=== PATIENT | female | born 1980 | race African-American/Black ===

== ENCOUNTER 2018-01-29 21:17 | Observation (INO) | payer BC, MEDICARE, SELFPAY ==
[2018-01-29 22:35] LABS: INR-International Normal Ratio 1.3; PTT 36.5 SEC (22.9-36.1); Prothrombin Time 16.5 SEC (12.0-14.7)
[2018-01-29 22:46] LABS: ALT (SGPT) 13 U/L (8-55); AST (SGOT) 28 U/L (5-34); Albumin 3.2 g/dL (3.5-5.0); Alkaline Phosphatase 205 U/L (40-150); Anion Gap 12 mmol/L (10-20); BUN (Urea Nitrogen) 7 mg/dL (7.0-18.7); Bilirubin, Total 1.2 mg/dL (0.2-1.2); Calc. Creatinine Clearance 0 mL/min (70-130); Calcium 8.5 mg/dL (7.8-10.44); Carbon Dioxide 19 mmol/L (22-29); Chloride 108 mmol/L (98-107); Estimated GFR-MDRD Greater than 90; Globulin 3.8 g/dL (2.4-3.5); Glucose 92 mg/dL (70-105); Potassium 3.4 mmol/L (3.5-5.1); Sodium 136 mmol/L (136-145)
[2018-01-29 22:48] LABS: Hemoglobin 9.8 g/dL (12.0-16.0); Mean Corpuscular HGB CONC 32.6 g/dL (32.0-36.0); Mean Corpuscular Hemoglobin 26.1 pg (27.0-31.0); Mean Corpuscular Volume 80.1 fl (81.0-99.0); Mean Platelet Volume 8.4 fL (7.4-10.4); Platelet Count 165 thou/uL (130-400); Red Blood Cell (RBC) Count 3.76 mill/uL (4.20-5.40); White Blood Cell (WBC) Count 11.4 thou/uL (4.8-10.8)
[2018-01-29 22:51] LABS: CKMB 4.9 ng/mL (0-6.6)
[2018-01-29 22:57] LABS: Troponin I 0.389 ng/mL (< 0.028)
[2018-01-29] MEDS ORDERED: Promethazine HCl 25 MG/ML VIAL ONE (23:00)
[2018-01-29 23:04] LABS: Lymphocytes 30 % (21-51); MDiff Complete? YES; Monocytes 5 % (0-10); Neutrophil 65 % (42-75); RBC Morphology Normal
[2018-01-30] MEDS ORDERED: Acetaminophen 325 MG TAB PO PRN (00:02)
[2018-01-30] MEDS ORDERED: Ondansetron HCl/PF 4 MG/2 ML Vial IVP PRN ×2 (00:02→10:16)
[2018-01-30] MEDS ORDERED: Ondansetron ODT 4 MG TAB SL PRN (00:02)
[2018-01-30 00:10] VITALS: BMI 25.5
[2018-01-30 02:04] LABS: Troponin I 0.412 ng/mL (< 0.028)
[2018-01-30] MEDS ORDERED: Aspirin 325 mg Enteric Coated Tablet PO SCH (02:30)
[2018-01-30 05:04] LABS: Troponin I 0.286 ng/mL (< 0.028)
[2018-01-30] MEDS ORDERED: Ondansetron ODT 4 MG TAB PO PRN (10:16)
[2018-01-30] MEDS ORDERED: hydrALAZINE 20 MG/ML VIAL SLOW IVP PRN (10:16)
[2018-01-30] MEDS ORDERED: cloNIDine 0.1 MG TAB PO PRN (10:16)
[2018-01-30 10:54] LABS: Cardiac Risk 2.9 (Less than 4.5); Magnesium 1.5 mg/dL (1.6-2.6)
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
[2018-01-30] MEDS: Acetaminophen 500 MG TAB PO PRN (13:41)
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
[2018-01-30] MEDS: Carvedilol 6.25 MG TAB PO SCH (18:34)
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
[2018-01-30] MEDS: Famotidine 20 MG TAB PO SCH (20:47)
[2018-01-30] MEDS ORDERED: Atorvastatin Calcium 40 MG TAB PO SCH (21:00)
[2018-01-31 05:29] LABS: Eosinophils 3 % (0-10); Hemoglobin 10.2 g/dL (12.0-16.0); Lymphocytes 69 % (21-51); MDiff Complete? YES; Mean Corpuscular HGB CONC 31.5 g/dL (32.0-36.0); Mean Corpuscular Hemoglobin 25.8 pg (27.0-31.0); Mean Corpuscular Volume 81.8 fl (81.0-99.0); Mean Platelet Volume 8.9 fL (7.4-10.4); Monocytes 7 % (0-10); Neutrophil 21 % (42-75); Platelet Count 173 thou/uL (130-400); RBC Distribution Width 14.3 % (11.5-14.5); Red Blood Cell (RBC) Count 3.95 mill/uL (4.20-5.40); White Blood Cell (WBC) Count 6.6 thou/uL (4.8-10.8)
[2018-01-31] MEDS: Famotidine 20 MG TAB PO SCH (08:31)
[2018-01-31] MEDS: Carvedilol 6.25 MG TAB PO SCH (08:32)
[2018-01-31] MEDS: Acetaminophen 500 MG TAB PO PRN (08:35)
[2018-01-31] MEDS ORDERED: Sacubitril 49 MG/Valsartan 51 MG TABLET PO SCH (09:00)
[2018-01-31] MEDS ORDERED: Aspirin 325 MG TAB PO SCH (09:00)
[2018-01-31] MEDS ORDERED: Clopidogrel Bisulfate 75 MG TAB PO SCH (09:00)
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
[2018-01-31 10:36] LABS: Free T4 (Free Thyroxine) 3.12 ng/dL (0.70-1.48)
[2018-01-31 11:59] VITALS: BP 132/72; TEMP 97.3
[2018-01-31] MEDS ORDERED: Losartan 25 MG TAB PO SCH (12:00)
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
[2018-01-31] MEDS ORDERED: Atorvastatin Calcium 20 MG TAB PO SCH (21:00)
[2018-02-01] MEDS ORDERED: Spironolactone 25 MG TAB PO SCH (08:00)
== END 2018-01-31 13:33 | disposition home or self-care (01) ==
LOC: ERS 21:17 → 2SW 22:40
PROVIDERS: ADMIT Internal Medicine; ATTEND Internal Medicine
DX: R07.9 Chest pain, unspecified (principal); I25.10 Atherosclerotic heart disease of native coronary artery without angina pectoris; I25.5 Ischemic cardiomyopathy; I24.8 Other forms of acute ischemic heart disease; I48.91 Unspecified atrial fibrillation; E05.00 Thyrotoxicosis with diffuse goiter without thyrotoxic crisis or storm; D50.9 Iron deficiency anemia, unspecified; F17.210 Nicotine dependence, cigarettes, uncomplicated; E87.6 Hypokalemia; E83.42 Hypomagnesemia; I11.0 Hypertensive heart disease with heart failure; I50.9 Heart failure, unspecified; E78.5 Hyperlipidemia, unspecified; Z95.5 Presence of coronary angioplasty implant and graft; Z79.82 Long term (current) use of aspirin; Z79.899 Other long term (current) drug therapy; Z91.14 Patient's other noncompliance with medication regimen; Z95.810 Presence of automatic (implantable) cardiac defibrillator; Z98.890 Other specified postprocedural states
CPT/HCPCS: 36415; 80061; 82274; 83540; 83550; 83735; 83880; 84439; 84443; 84481; 84484; 85007; 85027; 85610; 85730; 93005; 93306; 94760; 96365; 99406; A4216; G0378; J2550

== ENCOUNTER 2018-10-09 12:50 | Inpatient (IN) | payer BC, MEDICARE, SELFPAY ==
[2018-10-09 13:58] LABS: Hemoglobin 9.2 g/dL (12.0-16.0); Mean Corpuscular HGB CONC 31.3 g/dL (32.0-36.0); Mean Corpuscular Hemoglobin 25.6 pg (27.0-31.0); Mean Corpuscular Volume 81.9 fL (78.0-98.0); Mean Platelet Volume 10.3 fL (7.4-10.4); Platelet Count 152 thou/uL (130-400); RBC Distribution Width 16.7 % (11.5-14.5); Red Blood Cell (RBC) Count 3.58 mill/uL (4.20-5.40)
[2018-10-09 14:02] LABS: ALT (SGPT) Less than 7 U/L (8-55); AST (SGOT) 19 U/L (5-34); Albumin 2.7 g/dL (3.5-5.0); Alkaline Phosphatase 212 U/L (40-150); Anion Gap 10 mmol/L (10-20); BUN (Urea Nitrogen) 8 mg/dL (7.0-18.7); Calc. Creatinine Clearance 0 mL/min (70-130); Calcium 8.4 mg/dL (7.8-10.44); Carbon Dioxide 24 mmol/L (22-29); Chloride 106 mmol/L (98-107); Estimated GFR-MDRD Greater than 90; Globulin 4.4 g/dL (2.4-3.5); Glucose 118 mg/dL (70-105); Potassium 3.1 mmol/L (3.5-5.1); Protein, Total 7.1 g/dL (6.0-8.3); Sodium 137 mmol/L (136-145)
[2018-10-09 14:04] LABS: INR-International Normal Ratio 1.6; PTT 38.8 SEC (22.9-36.1); Prothrombin Time 19.2 SEC (12.0-14.7)
[2018-10-09 14:22] LABS: Acanthocytes SLIGHT = 1-5 cells (100X) (None Seen); Anisocytosis SLIGHT = 6-15 cells (100X) (0-5/hpf); Elliptocytes SLIGHT = 2-5 cells (100X) (0-1/hpf); Hypochromia SLIGHT = 6-15 cells (100X) (0-5/hpf); Lymphocytes 65 % (21-51); MDiff Complete? YES; Monocytes 3 % (0-10); Neutrophil 32 % (42-75); Platelet Morphology Comment Appears Adequate; Poikilocytosis SLIGHT = 6-15 cells (100X) (0-5/hpf); Target Cells SLIGHT = 2-5 cells (100X) (0-1/hpf)
--- NOTE | 2018-10-09 14:39 | RAD ---
PORTABLE AP CHEST XRAY: DATE: 10/09/2018. HISTORY: Fluid buildup in abdomen and bilateral legs. History of cardiomyopathy, CHF. COMPARISON: 04/17/2018. FINDINGS: Dual-lead left subclavian AICD device remains in place. Cardiac silhouette is magnified by projectio n but does appear mildly enlarged. Pulmonary vasculature is within normal limits. The electronic de vice overlying the left lung base obscures this region, but the lungs are otherwise clear. There has been no interval change from prior exam. IMPRESSION: 1. No acute cardiopulmonary process. 2. Cardiomegaly. POS: [facility]
[2018-10-09 16:15] LABS: Free T4 (Free Thyroxine) 3.75 ng/dL (0.70-1.48)
[2018-10-09] MEDS ORDERED: Magnesium 2 GM/50 ML BAG (IN WATER) ONE (16:40)
[2018-10-09] MEDS ORDERED: Potassium Chloride 20 MEQ in Premix Bag 1 BAG IVPB SCH (17:00)
[2018-10-09] MEDS ORDERED: Acetaminophen 650 MG Suppository PR PRN (18:22)
[2018-10-09] MEDS ORDERED: Senokot S 8.6-50 MG TAB PO PRN (18:22)
[2018-10-09] MEDS ORDERED: Acetaminophen 325 MG TAB PO PRN (18:22)
[2018-10-09] MEDS ORDERED: Ondansetron PF 4 MG/2 ML Vial IVP PRN (18:22)
[2018-10-09] MEDS ORDERED: Ondansetron ODT 4 MG TAB PO PRN (18:22)
[2018-10-09] MEDS ORDERED: Potassium Chloride 20 MEQ TAB PO SCH (18:30)
[2018-10-09 18:31] LABS: Troponin I Less than 0.010 ng/mL (< 0.028)
[2018-10-09 20:19] LABS: Bilirubin Small (Negative); Blood, Urine Trace (Negative); Clarity CLEAR (Clear); Glucose, Urine (Dipstick) Negative (Negative); Leukocyte Trace (Negative); Nitrite Negative (Negative); Protein, Urine (Dipstick) 30 mg/dL (Neg-Trace); pH, Urine 6.5 (5.0-9.0)
[2018-10-09 20:20] LABS: Bacteria/HPF Rare-Few HPF (None Seen); Hyaline Casts/LPF 0-3 HYALINE CAST LPF (0-3 Hyaline); Pathc Cast-AUWi Flag 0.14 (0-2.49); Squamous Epithelial 0-3 HPF (0-3); WBC/HPF 0-3 HPF (0-3)
[2018-10-09 20:23] LABS: Pregnancy Test - Urine (BHCG) Negative (Negative); Pregu Control Background? CLEAR/WHITE (CLR/WHITE); Pregu Control Bar Appear? YES (CONTROL BAR)
[2018-10-09 20:27] LABS: Troponin I Less than 0.010 ng/mL (< 0.028)
[2018-10-09] MEDS ORDERED: Famotidine 20 MG TAB ONE (21:30)
[2018-10-09] MEDS: Magnesium Oxide 400 MG TAB PO SCH (21:34)
[2018-10-09] MEDS: Atorvastatin Calcium 20 MG TAB PO SCH (21:34)
[2018-10-09] MEDS: Methimazole 10 MG TAB PO SCH (21:34)
[2018-10-09] MEDS: Famotidine 20 MG TAB PO SCH (21:55)
[2018-10-09] MEDS: Sacubitril 49 MG/Valsartan 51 MG TABLET PO SCH (22:24)
--- NOTE | 2018-10-10 01:07 | HP ---
PRIMARY CARE PHYSICIAN: Nae Sanderson PA-C CHIEF COMPLAINT: Dyspnea on exertion and increasing abdominal girth. HISTORY OF PRESENT ILLNESS: This is a 38-year-old female with a known history of congestive heart failure with ejection fraction less than 30%, who also has an AICD and has had a cardiac stent placed as well. She reports that over the last 2 to 3 weeks, she has had increased dyspnea on exertion, increased shortness of breath when she tries to bend over, and increasing abdominal girth. She came in today to be evaluated for this. She was noted to have findings of ascites on her abdominal exam along with low albumin and mildly elevated bilirubin and also to have a severely elevated brain natriuretic peptide, though with fairly clear lungs and not a lot of peripheral edema. The patient is also noted to have exophthalmos and TSH showed hyperthyroidism, she has a history of Graves disease, it was uncontrolled. She reports that she has not taken any methimazole for many months because she was unable to get back in to see her validation intern. PAST MEDICAL HISTORY: 1. Coronary artery disease, status post cardiac stent placement in 2008. 2. Cardiomyopathy likely with most recent ejection fraction of 20% to 25%, as well as diastolic dysfunction in January of 2018. 3. Hypertension. 4. Dyslipidemia. 5. Graves disease. PAST SURGICAL HISTORY: 1. Bilateral tubal ligation. 2. AICD placement in 2008 with battery exchange in 2014. 3. Cardiac stent placement in 2008. 4. section. 5. Right knee surgery. SOCIAL HISTORY: The patient smokes 1 to 2 cigarettes per day for the last 1 to 2 years. Before that, she was doing about 10 per day. No regular alcohol. No illicit drugs. She lives in [place], [place]. Has a 10-year-old daughter. FAMILY HISTORY: Multiple family members with hypertension. ALLERGIES: NO KNOWN DRUG ALLERGIES. CURRENT MEDICATIONS: 1. Coreg 12.5 mg twice a day. 2. Plavix 75 mg daily. 3. Simvastatin 10 mg daily. 4. Spironolactone 25 mg daily. 5. Aspirin 325 mg daily. 6. Entresto 49/51 mg two times a day. REVIEW OF SYSTEMS: CONSTITUTIONAL: No fevers, no chills, no weight changes. EYES: No double vision or blurred vision. She has had protuberant eyes, has not noticed any changes recently. ENT: No congestion, drainage, or sore throat. CARDIOVASCULAR: No chest pain. No palpitations or racing heart. PULMONARY: See HPI. No coughing or wheezing. GASTROINTESTINAL: She has had increasing abdominal girth, but no abdominal pain. No nausea, vomiting. No diarrhea or constipation. GENITOURINARY: No dysuria or hematuria. MUSCULOSKELETAL: No muscle aches or joint pain. SKIN: No rashes or lesions noted. NEUROLOGIC: No numbness, tingling, or focal weakness. PHYSICAL EXAMINATION: VITAL SIGNS: Blood pressure 143/84, pulse 73, respirations 18, temperature 98.3, O2 saturation 95% on room air. GENERAL: This is a well-developed, well-nourished female, in no acute distress. HEENT: Pupils equal, round, and reactive to light. She does have exophthalmos. Oropharynx is clear without lesions, erythema, or exudate. NECK: Supple. No lymphadenopathy. No thyroid nodules or enlargement. She does have significant JVD. HEART: Regular rate and rhythm. No murmurs, rubs, or gallops. LUNGS: Clear to auscultation bilaterally. No wheezes, crackles, or rhonchi. ABDOMEN: Protuberant, firm. She does have a positive fluid wave, not specifically tender to palpation. No organomegaly or masses. She does have normoactive bowel sounds. EXTREMITIES: She has trace edema in the lower extremities. No clubbing or cyanosis. SKIN: No rashes or lesions noted. NEUROLOGIC: She has intact strength in all extremities. Intact reflexes in all extremities and no facial droop. PSYCHIATRIC: Alert and oriented x3. Normal mood and affect. LABORATORY DATA: CBC notable for a hemoglobin of 9.2, hematocrit of 29.3; these are consistent with her previous labs. Platelet count is normal. White count normal. Coagulation profile does show a PT of 19.2, INR of 1.6, and a PTT of 38. Complete metabolic panel is notable for potassium of 3.1, for which she got replacement in the ER. Creatinine was 0.59, glucose of 118, and calcium of 8.4. Total bilirubin was 2.0. AST and ALT were not elevated. Alkaline phosphatase was 212. Albumin was 2.7, down from 3 in the middle of last year and normal in 2017. Her TSH was suppressed at 0.0025, free T4 was elevated at 3.75 and free T3 was greater than 20. Troponin was normal. Brain natriuretic peptide was elevated at 1635 which is higher than any of her previous time she was in. Magnesium was low at 1.3. CHEST X-RAY: I did review the chest x-ray done in the emergency room along with the radiologist's report, it does show cardiomegaly, but no evidence of pulmonary edema or congestion. ASSESSMENT: 1. Acute exacerbation of congestive heart failure. This is likely the source of her ascites as well and may have caused her liver failure. We will give patient Lasix 40 mg IV twice a day. We will also replete potassium as needed. We will continue her spironolactone also as well as other heart medications. 2. Graves disease, uncontrolled. Patient has been off methimazole and is completely uncontrolled now, although she does not have any tachycardia at this time. We will start her on methimazole 10 mg three times a day and we will give propranolol if needed should she develop any evidence of tachycardia or other evidence of thyroid storm. 3. Hypokalemia, replaced in the ER. We will continue to replace as needed. We will go ahead and start her on a 20 mg tablet daily as well given that we are going to be diuresing her. 4. New onset ascites with evidence of liver failure. She has a low albumin and elevated bilirubin, suspicious of cardiac cirrhosis. We would get an ultrasound of her liver and of her abdomen to fully assess the ascites and her liver structure and we will also consult Dr. Pappas, Gastroenterology. We will check viral hepatitis panels as well. 5. Gastrointestinal prophylaxis. Put patient on Pepcid twice a day. 6. Deep venous thrombosis prophylaxis. We will put patient on SCDs. We will hold off on the enoxaparin for now given her liver disease. CODE STATUS: I did discuss this with the patient. She is a full code. Should she be incapacitated, she states that her aunt would be her medical decision maker, her name is Daisy Rodriguez. Job ID: [id number]
[2018-10-10 04:24] LABS: Anion Gap 10 mmol/L (10-20); BUN (Urea Nitrogen) 9 mg/dL (7.0-18.7); Calc. Creatinine Clearance 0 mL/min (70-130); Calcium 8.4 mg/dL (7.8-10.44); Carbon Dioxide 24 mmol/L (22-29); Chloride 107 mmol/L (98-107); Estimated GFR-MDRD Greater than 90; Glucose 84 mg/dL (70-105); Potassium 3.5 mmol/L (3.5-5.1); Sodium 137 mmol/L (136-145)
[2018-10-10] MEDS ORDERED: Furosemide 40 MG/4 ML VIAL ONE ×2 (05:50→13:34)
[2018-10-10] MEDS: Furosemide 40 MG/4 ML VIAL SLOW IVP SCH ×2 (06:01→13:47)
[2018-10-10 06:42] LABS: Hemoglobin 9.1 g/dL (12.0-16.0); MDiff Complete? YES; Mean Corpuscular HGB CONC 31.4 g/dL (32.0-36.0); Mean Corpuscular Hemoglobin 25.5 pg (27.0-31.0); Mean Corpuscular Volume 81.3 fL (78.0-98.0); Mean Platelet Volume 10.4 fL (7.4-10.4); Platelet Count 153 thou/uL (130-400); RBC Distribution Width 16.5 % (11.5-14.5); Red Blood Cell (RBC) Count 3.58 mill/uL (4.20-5.40); White Blood Cell (WBC) Count 5.9 thou/uL (4.8-10.8)
[2018-10-10 06:55] LABS: Lymphocytes 48 % (21-51)
[2018-10-10 07:01] LABS: Neutrophil 44 % (42-75)
[2018-10-10 07:02] LABS: Monocytes 8 % (0-10)
--- NOTE | 2018-10-10 08:13 | PDOC.PN ---
- Subjective Encounter Start Date: 10/10/18 Encounter Start Time: 11:30 Subjective: Voiding well with Lasix. No SOB. - Objective Resuscitation Status - Order Detail: 10/09/18 18:15 Resuscitation Status Routine Resuscitation Status: FULL: Full Resuscitation Discussed with: Guillaume WALTER Reviewed: Yes Result Diagrams: 10/10/18 03:34 10/10/18 03:34 Phys Exam - Physical Examination Constitutional: NAD HEENT: moist MMs Respiratory: no wheezing, no rales, no rhonchi Cardiovascular: RRR, no significant murmur Gastrointestinal: positive bowel sounds distended, tense, non-tender Musculoskeletal: no edema Neurological: non-focal, moves all 4 limbs Psychiatric: normal affect, A&O x 3 Dx/Plan (1) Acute on chronic systolic CHF (congestive heart failure) Code(s): I50.23 - ACUTE ON CHRONIC SYSTOLIC (CONGESTIVE) HEART FAILURE Status : Acute Comment: Diuresing (2) Liver failure Status: Acute Comment: Likely due to CHF congestion (3) Ascites Code(s): R18.8 - OTHER ASCITES Status: Acute (4) Graves' disease Code(s): E05.00 - 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 - Discharge Day Encounter end time: 11:45
--- NOTE | 2018-10-10 08:29 | ULT ---
COMPLETE ABDOMINAL ULTRASOUND: Comparison: None. History: Liver failure with new onset ascites. Technique: Multiplanar grayscale and color doppler images were obtained in a complete abdominal ultra sound. FINDINGS: The liver is slightly echogenic without focal lesions or intrahepatic duct dilatation. There is a mod erate amount of ascites. The gallbladder is contracted with the current gallbladder wall thickening l ikely secondary to its contracted state. No shadowing stones are seen in the gallbladder. The common bile duct is normal measuring 2 mm. The aorta and inferior vena cava are normal in caliber. The visualized portions of the pancreas are u nremarkable. The spleen is normal in echogenicity without focal lesions and measures 8.2 cm in length . Both kidneys are normal in echogenicity without hydronephrosis or calculi and measures 8.7 and 8.9 cm in length on the right and left, respectively. IMPRESSION: Moderate ascites. POS: [facility]
[2018-10-10] MEDS ORDERED: Enoxaparin Sodium 40 MG/0.4 ML SYRINGE SC SCH (09:00)
[2018-10-10 09:01] LABS: HBCM Index 0.08 S/CO (0-0.79); HBSAg Index 0.22 S/CO (0-0.99); Hep A IgM AB Non-Reactive (NonReactive); Hep A IgM S/CO 0.13 S/CO (0-0.79); Hep B Surf Ag Non-Reactive S/CO (NonReactive); Hep C IgG Ab Non-Reactive (NonReactive); Hep C Index 0.06 S/CO (0-0.79); Hepatitis B Core IgM Abs Non-Reactive (NonReactive)
[2018-10-10] MEDS: Sacubitril 49 MG/Valsartan 51 MG TABLET PO SCH ×2 (10:26→20:57)
[2018-10-10] MEDS: Carvedilol 6.25 MG TAB PO SCH ×2 (12:37→17:38)
[2018-10-10] MEDS: Methimazole 10 MG TAB PO SCH ×3 (12:39→20:57)
[2018-10-10] MEDS: Magnesium Oxide 400 MG TAB PO SCH ×2 (12:41→20:56)
[2018-10-10] MEDS ORDERED: Famotidine 20 MG TAB ONE (13:34)
[2018-10-10] MEDS ORDERED: Potassium Chloride 20 MEQ TAB ONE (13:34)
[2018-10-10] MEDS ORDERED: Clopidogrel Bisulfate 75 MG TAB ONE (13:34)
[2018-10-10] MEDS: Clopidogrel Bisulfate 75 MG TAB PO SCH (13:43)
[2018-10-10] MEDS: Potassium Chloride 20 MEQ TAB PO SCH (13:44)
[2018-10-10] MEDS: Famotidine 20 MG TAB PO SCH ×2 (13:44→20:56)
[2018-10-10] MEDS: Spironolactone 25 MG TAB PO SCH (14:24)
[2018-10-10 15:02] VITALS: BMI 26.8
--- NOTE | 2018-10-10 19:55 | CON ---
DATE OF CONSULTATION: 10/10/2018 REASON FOR CONSULTATION: Heart failure. PRIMARY NEONATAL PEDIATRIC NURSE: Dr. Torres Brown. HISTORY OF PRESENT ILLNESS: Ms. Tirado is a pleasant 38-year-old female, who comes to the hospital for increased shortness of breath. She has been having worsening shortness of breath for the last 3 weeks as well as some increase in abdominal girth. She came in as she was unable to tolerate her abdominal pain from the swelling and her breathing was getting much worse, she cannot lie flat. She has not been on thyroid suppressive medications for some time now, but she has been taking her heart failure medications. She was evaluated in the ER and admitted for heart failure exacerbation. She has known nonischemic cardiomyopathy with a cardiomyopathy with an EF of about 20% to 25%. She was also found to have completely suppressed TSH and a very elevated free T3 and free T4 consistent with Graves disease that was untreated. The patient received 1 dose of IV Lasix. She has diuresed some and is already feeling much better. PAST MEDICAL HISTORY: 1. Nonischemic cardiomyopathy . 2. 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 She has never had a stent placed. She actually only had thrombectomy of the thrombus that embolized on the LAD. 3. Hypertension. 4. Hyperlipidemia. 5. Graves disease. PAST SURGICAL HISTORY: 1. Bilateral tubal ligation. 2. AICD placement in 2008, exchanged in 2014. 3. Manual thrombectomy of the LAD in 2008 in the setting of an anterior LA related to an embolic LA from an LV thrombus. 4. . 5. Right knee surgery. SOCIAL HISTORY: Continues to smoke about 1 or 2 cigarettes a day. No alcohol. No drugs. FAMILY HISTORY: Hypertension. ALLERGIES: NO KNOWN DRUG ALLERGIES. OUTPATIENT MEDICATIONS: 1. Simvastatin 20 mg a day. 2. Fish oil 1000 b.i.d. 3. Aspirin 81 a day. 4. Entresto 49/51 twice a day. 5. Carvedilol 25 b.i.d. 6. Plavix 75 mg daily. 7. Lasix 40 mg daily. 8. Spironolactone 25 mg a day. REVIEW OF SYSTEMS: A 12-point review of systems was done and was all negative unless stated in the history of present illness. PHYSICAL EXAMINATION: VITAL SIGNS: Temperature 98.8, pulse 63, respiratory rate 18, saturating 97% on room air, blood pressure 119/58. GENERAL: Awake, alert, and oriented x3. No distress. HEENT: Normocephalic, atraumatic. NECK: Supple. LUNGS: Have mild crackles at the bases. CARDIOVASCULAR: S1, S2. No S3 or S4. No murmurs. ABDOMEN: Prominent and positive ascitic wave, tense, but not tender. EXTREMITIES: 1+ edema. SKIN: Warm and dry. LABORATORY DATA: Laboratory work was reviewed. CBC with a white count of 5.9, hemoglobin 9.1, hematocrit 29, platelet count 153. Coags were reviewed. Chemistries were reviewed. Creatinine of 0.57, GFR greater than 90. Troponin negative x3. BNP was 1635. TSH was undetectable. Free T3 was greater than assay limit and free T4 was 3.75, which is high as well. UA was unremarkable. Hepatitis serologies were nonreactive. ASSESSMENT: 1. [id number] systolic heart failure. 2. Hyperthyroidism, likely cause of her decompensation. 3. cardiomyopathy. 4. History of LA from an embolic source in her LV thrombus. No coronary artery disease or stents placed ever. PLAN: 1. Continue IV diuresis. 2. Agree with methimazole to suppress thyroid hormones. 3. Dr. Brown, her primary police surgeon, will follow up in the morning. Job ID: [id number]
[2018-10-10] MEDS: Atorvastatin Calcium 20 MG TAB PO SCH (20:56)
--- NOTE | 2018-10-11 01:03 | CON ---
DATE OF CONSULTATION: 10/10/2018 REASON FOR CONSULTATION: Ascites. HISTORY: Mrs. Tirado is a 38-year-old female with cardiomyopathy and coronary artery disease, who was admitted from the ER yesterday with a 2-week history of worsening shortness of breath. During this time, she has noted progressive distention of abdominal girth and peripheral edema. She also has Graves disease that has not been treated. Currently, she feels better since admission with improvement of her dyspnea and improvement of her peripheral edema. She denies any nausea, vomiting, abdominal pain. She has not had any altered bowel function. She denies any risk factors for chronic liver disease, specifically no previous history of sharing needles, transfusion, high-risk sexual activity, although she did have a tattoo placement within the last three years. There is no family historyof liver disease. She does not consume alcohol. PAST MEDICAL HISTORY: 1. Chronic kidney disease, status post stent placement. 2. cardiomyopathy with EF of 20% to 25%. 3. Hypertension. 4. Hyperlipidemia. 5. Graves disease. 6. Status post . 7. Knee surgery. 8. Bilateral tubal ligation. ALLERGIES: NO KNOWN DRUG ALLERGIES. CURRENT MEDICATIONS: Include Lipitor 20 mg at bedtime, Coreg 12.5 mg b.i.d., Plavix 75 mg daily, Pepcid 20 mg b.i.d., Lasix 40 mg IV b.i.d., methimazole 10 mg t.i.d., Entresto one tablet b.i.d., and spironolactone 25 mg daily. SOCIAL HISTORY: The patient is single, has one daughter. She has no tobacco or alcohol usage. She does smoke up to half a pack a day. FAMILY HISTORY: Negative for any known GI problem, liver disease or GI malignancy. REVIEW OF SYSTEMS: 10-point review of systems did not show any other pertinent positives or negatives. PHYSICAL EXAMINATION: VITAL SIGNS: Temperature is 98.8, blood pressure 119/58, pulse is 63. GENERAL: She is alert, conversant, no distress. HEENT: Exam shows exophthalmus, sclerae anicteric. Oropharynx clear. NECK: Supple. CV: Shows normal S1, S2. Regular rate and rhythm. CHEST: Shows a breath sound. ABDOMEN: Protuberant, but no tympany. No palpable mass or organomegaly, but these exams are limited secondary to her abdominal protuberance from ascites. EXTREMITIES: Does not show any edema. LABORATORY DATA: Sodium 137, potassium 3.1, chloride 106, CO2 of 24, creatinine 0.59, bilirubin 2.0, AST is 19, ALT less than 7, alkaline phosphatase 212. INR is 1.6, PT of 19.2. WBCs 5.9, hemoglobin 9.1, platelet count of 153. Abdominal ultrasound showed moderate ascites. Liver is echogenic without mass. Gallbladder and common duct were normal. ASSESSMENT: New onset ascites in the setting of having known cardiomyopathy and coronary artery disease. Considerations for her ascites include a cardiogenic shock from right-sided heart failure, portal hypertension/cirrhosis, or malignancy. The patient does not have any significant risk factor for liver disease. RECOMMENDATIONS: 1. Diagnostic paracentesis to calculate serum to ascitic albumin gradient. 2. Check CA-125. 3. Check cytology on the ascitic fluid sample. 4. Further recommendation to follow pending above findings. Job ID: [id number]
[2018-10-11] MEDS: Furosemide 40 MG/4 ML VIAL SLOW IVP SCH ×2 (05:33→14:44)
[2018-10-11] MEDS: Clopidogrel Bisulfate 75 MG TAB PO SCH (09:02)
[2018-10-11] MEDS: Spironolactone 25 MG TAB PO SCH (09:02)
[2018-10-11] MEDS: Carvedilol 6.25 MG TAB PO SCH ×2 (09:02→17:49)
[2018-10-11] MEDS: Famotidine 20 MG TAB PO SCH ×2 (09:02→21:24)
[2018-10-11] MEDS: Magnesium Oxide 400 MG TAB PO SCH ×2 (09:02→21:24)
[2018-10-11] MEDS: Potassium Chloride 20 MEQ TAB PO SCH (09:02)
[2018-10-11] MEDS: Methimazole 10 MG TAB PO SCH ×3 (09:02→22:15)
--- NOTE | 2018-10-11 09:03 | PDOC.PN ---
- Subjective Encounter Start Date: 10/11/18 Encounter Start Time: 09:45 Subjective: Patient reports decreased SOB, abdomen a little smaller. She can bend over -: now without symptoms. - Objective Resuscitation Status - Order Detail: 10/09/18 18:15 Resuscitation Status Routine Resuscitation Status: FULL: Full Resuscitation Discussed with: Patient SABA Reviewed: Yes Vital Signs & Weight: Vital Signs (12 hours) Temp Pulse Resp BP Pulse Ox 10/11/18 07:51 98.1 F 66 18 123/63 97 10/11/18 04:20 98.5 F 65 20 119/67 97 Weight Weight 126 lb I&O: 10/10/18 10/11/18 10/12/18 06:59 06:59 06:59 Intake Total 1030 Output Total 1100 Balance -70 Result Diagrams: 10/10/18 03:34 10/10/18 03:34 Phys Exam - Physical Examination Constitutional: NAD HEENT: moist MMs Respiratory: no wheezing, no rales, no rhonchi Cardiovascular: RRR, no significant murmur Gastrointestinal: soft, positive bowel sounds still distended by no longer tense Musculoskeletal: no edema Neurological: non-focal, moves all 4 limbs Psychiatric: normal affect, A&O x 3 Dx/Plan (1) Acute on chronic systolic CHF (congestive heart failure) Code(s): I50.23 - ACUTE ON CHRONIC SYSTOLIC (CONGESTIVE) HEART FAILURE Status : Acute Comment: Diuresing (2) Liver failure Status: Acute Comment: Likely due to CHF congestion, viral hepatitis panels negative, Dr. 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 Cancer serologies and paracentesis pending. * . - Discharge Day Encounter end time: 10:00
[2018-10-11] MEDS: Sacubitril 49 MG/Valsartan 51 MG TABLET PO SCH ×2 (09:06→22:15)
--- NOTE | 2018-10-11 16:29 | ULT ---
TRANSABDOMINAL PELVIC ULTRASOUND: Date: 10/11/18 INDICATION: Elevated CA-125. TECHNIQUE: Flores scale, color Doppler, and spectral Doppler images were obtained of the pelvis via a transabdomin al approach. FINDINGS: Uterus measures 5.5 x 2.1 x 2.9 cm. Endometrial stripe measures 2.2 mm. Right ovary measures 2.4 x 1.2 x 1.4 cm. Left ovary measures 2.2 x 1.8 x 1.6 cm. There is normal flow to both ovaries. There is a prominent amount of ascites. IMPRESSION: 1. Prominent ascites. 2. No additional sonographic abnormality. POS: [facility]
--- NOTE | 2018-10-11 16:46 | PRG ---
DATE OF SERVICE: 10/11/2018 SUBJECTIVE: The patient overall feels better. She is much less short of breath. Abdomen is less distended. She has no nausea, vomiting, or abdominal pain. PHYSICAL EXAMINATION: VITAL SIGNS: Temperature is 98.1, blood pressure 109/64, pulse is 54. GENERAL: She is alert, conversant. No distress. HEENT: Shows anicteric sclerae. CV: Shows normal S1, S2. Regular rate and rhythm. CHEST: Shows a breath sound, clear to auscultation. ABDOMEN: Still protuberant, but nontender. No palpable mass or organomegaly, but hard to discern because of size. She has active bowel sounds. EXTREMITIES: Show no edema. LABORATORY DATA: WBCs 5.9, hemoglobin 9.1, platelet count of 153. CA-125 is 195. Viral hepatitis serology is negative for B and C. ASSESSMENT: 1. New onset ascites, differential diagnosis may include a cardiogenic, less likely portal hypertension or cirrhosis. There is elevation of CA-125, raises possibility of ovarian cancer. 2. No signs of liver failure. I think her liver synthetic function is intact. 3. No stigmata of cirrhosis. RECOMMENDATIONS: 1. Await diagnostic paracentesis with fluid sent for cytology and albumin to calculate serum to ascitic albumin gradient. 2. Add pelvic ultrasound. 3. Dr. Flores to cover GI service starting tomorrow. Job ID: [id number]
[2018-10-11] MEDS ORDERED: Sodium Chloride 0.9% 10 ML ONE (20:48)
[2018-10-11] MEDS: Atorvastatin Calcium 20 MG TAB PO SCH (21:24)
[2018-10-12] MEDS ORDERED: Sodium Chloride 0.9% 10 ML ONE (06:09)
[2018-10-12] MEDS: Furosemide 40 MG/4 ML VIAL SLOW IVP SCH ×2 (06:41→14:45)
[2018-10-12] MEDS ORDERED: Sodium Bicarbonate 2.5 MEQ/5 ML VIAL ONE (08:41)
[2018-10-12] MEDS: Magnesium Oxide 400 MG TAB PO SCH (10:02)
[2018-10-12] MEDS: Methimazole 10 MG TAB PO SCH ×2 (10:02→14:45)
[2018-10-12] MEDS: Potassium Chloride 20 MEQ TAB PO SCH (10:02)
[2018-10-12] MEDS: Famotidine 20 MG TAB PO SCH (10:02)
[2018-10-12] MEDS: Spironolactone 25 MG TAB PO SCH (10:02)
[2018-10-12] MEDS: Carvedilol 6.25 MG TAB PO SCH (10:02)
[2018-10-12] MEDS: Sacubitril 49 MG/Valsartan 51 MG TABLET PO SCH (10:02)
--- NOTE | 2018-10-12 11:11 | ULT ---
DIAGNOSTIC PARACENTESIS: Date: 10-12-18 History: 38-year-old female with new onset ascites and history of cardiomyopathy. Diagnostic paracent esis was requested. FINDINGS: Informed consent obtained prior to the procedure. Increased risk of bleeding discussed with the patie nt secondary to administration of Plavix and aspirin on 10-11-18. Given this, only a diagnostic parace ntesis was performed at this time. Pre-procedural imaging demonstrates ascites throughout the abdomen/pelvis. Left lower quadrant was pr epped and draped in normal sterile fashion and anesthetized with 1% buffered Lidocaine. With direct s onographic guidance, a 25 gauge needle was advanced into the ascites and approximately 10 cc of yello w ascites was aspirated and sent to the laboratory for assessment. Patient tolerated the procedure well. IMPRESSION: Successful ultrasound guided diagnostic paracentesis. POS: [facility]
[2018-10-12 12:52] VITALS: BP 116/65; TEMP 98.3
--- NOTE | 2018-10-13 05:59 | DIS ---
DATE OF ADMISSION: 10/09/2018 DATE OF DISCHARGE: 10/12/2018 PRIMARY CARE PHYSICIAN: [facility] in [place], Dr. Nae Sanderson. CONSULTS: 1. Chemical Machine Tender, Dr. Deedee Culver. 2. Roll Sheeting Cutter, Dr. Torres Brown. 3. Transformation Manager, Dr. Tanvir Wolfe. CHIEF COMPLAINT/REASON FOR ADMISSION: Dyspnea on exertion and increasing abdominal girth. PRINCIPAL DIAGNOSIS ON ADMISSION: Acute exacerbation of chronic systolic congestive heart failure. DISCHARGE DIAGNOSES: 1. Acute exacerbation of chronic systolic congestive heart failure. 2. Graves disease, uncontrolled, off methimazole, now with resumption. 3. Hypokalemia. 4. Hypomagnesemia. 5. Hypertension. 6. Dyslipidemia. HOSPITAL COURSE: Ms. 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 No prior PTCA/stent. She has had prior thrombectomy of thrombus that embolized with anterior descending artery. Additionally, she has a medical history of essential hypertension, dyslipidemia, and Graves disease, off methimazole at the time of presentation to the hospital. The patient presented to the hospital with worsening fluid retention/edema/increasing abdominal girth. She was seen and evaluated by cardiology services with recommendation for ongoing diuretic therapy. Additionally, methimazole initiated for Graves disease as hyperthyroidism felt to be the most likely etiology of her decompensation. Regarding her ascites, diagnostic paracentesis ordered per GI services. CA-125 was also checked, found to be elevated at 195, normal for this lab is less than 35. A subsequent pelvic ultrasound was performed which showed no additional sonographic abnormality with the exception of prominent ascites. Ovaries unremarkable. Abdominal ultrasound on 10/10/2018, demonstrated moderate ascites. Chest x-ray on admission 10/09/2018, showed no acute cardiopulmonary process, did show cardiomegaly on 10/12/2018, diagnostic paracentesis performed, no complications during procedure. I have verified that the order has been placed for serum albumin as well as cytology on the fluid specimen. These labs results are pending at the time of dictation. Ms. Tirado noted interval improvement with conservative care and diuretics. She at this time is eager to proceed home, and is agreeable for outpatient followup with her various doctors. I have spoken with her personally about the importance of following up in the office with GI to further ascertain if any additional steps are recommended in the context of elevated CA-125, particularly as her cytology result has not returned at that point in time. Additionally, she will seek follow up with Endocrinology, Dr. Culver, to continue methimazole therapy. She follows up with Dr. Borwn on routine basis for cardiology. I have added Lasix regimen to her current medication list for maintenance therapy, and she will continue her other routine home medications already prescribed for heart failure. She also will resume aspirin and Plavix, now that she has completed the diagnostic paracentesis. On the day of discharge, she is sitting up in a chair, tells me she feels much better than when she came to the hospital. Abdomen continues to have evidence of distention, thus she states that it is markedly increased. Lower extremity edema is mild in nature. Lungs are notable for decreased breath sounds at the bases. High power field revealed good aeration as noted above. MEDICATIONS AT DISCHARGE: 1. Lasix 40 mg p.o. once daily. 2. Magnesium oxide 400 mg p.o. once daily. 3. Methimazole 10 mg p.o. t.i.d. 4. Potassium citrate 5 mEq p.o. once daily. 5. Aspirin 81 mg p.o. once daily. 6. Atorvastatin 20 mg p.o. at bedtime. 7. Carvedilol 12.5 mg p.o. twice daily. 8. Plavix 75 mg p.o. once daily. 9. Entresto 49 mg/51 mg one tablet p.o. b.i.d. 10. Spironolactone 25 mg p.o. daily. DIET: Low salt/heart healthy. ACTIVITY: As tolerated. FOLLOW UP: 1. With [facility] in [place] with Dr. Nae Sanderson. 2. Endocrinology, Dr. Deedee Culver. 3. Cardiology, Dr. Torres Brown and Dr. Muro. 4. Gastroenterology, Dr. Tanvir Wolfe. TIME SPENT: Total discharge time, 50 minutes. Job ID: [id number]
== END 2018-10-12 16:06 | disposition home or self-care (01) | DRG 292 ==
LOC: ERS 12:50 → ERHOLD 16:21 → 2NO 10-10 14:22
PROVIDERS: ADMIT Emergency Medicine; ATTEND Emergency Medicine
PROC: 0W9G3ZX Drainage of Peritoneal Cavity, Percutaneous Approach, Diagnostic (ICD-10-PCS; principal; 2018-10-12)
DX: I11.0 Hypertensive heart disease with heart failure (principal); R18.8 Other ascites; E05.00 Thyrotoxicosis with diffuse goiter without thyrotoxic crisis or storm; I50.23 Acute on chronic systolic (congestive) heart failure; I42.8 Other cardiomyopathies; E87.6 Hypokalemia; E83.42 Hypomagnesemia; E78.5 Hyperlipidemia, unspecified; I25.2 Old myocardial infarction; Z79.82 Long term (current) use of aspirin; Z79.01 Long term (current) use of anticoagulants; Z95.810 Presence of automatic (implantable) cardiac defibrillator; Z91.14 Patient's other noncompliance with medication regimen; I25.10 Atherosclerotic heart disease of native coronary artery without angina pectoris; F17.210 Nicotine dependence, cigarettes, uncomplicated
CPT/HCPCS: 36415; 49083; 71045; 76700; 76856; 80048; 80053; 80074; 81003; 81015; 81025; 82042; 82150; 83735; 83880; 84439; 84443; 84481; 84484; 85025; 85610; 85730; 86304; 88112; 88305; 93005; 93798; 93976; J1940; J3480

== ENCOUNTER 2022-04-27 12:17 | Observation (INO) | payer MEDICARE, MEDICAID ==
[2022-04-27 12:57] LABS: #Eosinphils 0.1 thou/uL (0.0-0.7); #Lymphocytes 2.6 thou/uL (1.20-3.40); #Monocytes 0.3 thou/uL (0.11-0.59); #Neutrophils 3.1 thou/uL (1.40-6.50); %Basophils 0.5 % (0.0-1.0); %Eosinophils 2.1 % (0.0-10.0); %Lymphocytes 42.1 % (21.0-51.0); %Monocytes 5.2 % (0.0-10.0); %Neutrophils 50.1 % (42.0-75.0); Hemoglobin 13.3 g/dL (12.0-16.0); Mean Corpuscular HGB CONC 32.7 g/dL (32.0-36.0); Mean Corpuscular Hemoglobin 29.8 pg (27.0-31.0); Mean Platelet Volume 7.5 fL (7.4-10.4); Platelet Count 268 thou/uL (130-400); RBC Distribution Width 12.3 % (11.5-14.5); Red Blood Cell (RBC) Count 4.48 mill/uL (4.20-5.40); White Blood Cell (WBC) Count 6.1 thou/uL (4.8-10.8)
[2022-04-27 13:31] LABS: Magnesium 1.8 mg/dL (1.6-2.6); Prothrombin Time 13.2 sec (12.0-14.7)
[2022-04-27] MEDS ORDERED: Aspirin Chewable 81 MG TAB ONE (13:33)
[2022-04-27 13:46] LABS: ALT (SGPT) 11 U/L (8-55); AST (SGOT) 23 U/L (5-34); Albumin 4.1 g/dL (3.5-5.0); Alkaline Phosphatase 97 U/L (40-110); Anion Gap 15 mmol/L (10-20); BUN (Urea Nitrogen) 9 mg/dL (7.0-18.7); Bilirubin, Total 0.4 mg/dL (0.2-1.2); Calc. Creatinine Clearance 0 mL/min (70-130); Carbon Dioxide 26 mmol/L (22-29); Chloride 102 mmol/L (98-107); Estimated GFR 81; Globulin 4.3 g/dL (2.4-3.5); Glucose 138 mg/dL (70-105); Lipase 21 U/L (8-78); Potassium 4.5 mmol/L (3.5-5.1); Protein, Total 8.4 g/dL (6.0-8.3); Sodium 138 mmol/L (136-145)
[2022-04-27 13:48] LABS: CKMB 0.4 ng/mL (0-6.6)
[2022-04-27 13:49] LABS: BHCG - Serum Negative (NEGATIVE); Pregs Control Background? CLEAR/WHITE (CLR/WHITE); Pregs Control Bar Appear? YES (CONTROL BAR)
[2022-04-27 16:47] VITALS: BMI 32.8
[2022-04-27] MEDS ORDERED: Bisacodyl 10 MG SUPP PR PRN (19:04)
[2022-04-27] MEDS ORDERED: Bisacodyl 5 MG TAB PO PRN (19:04)
[2022-04-27] MEDS ORDERED: Ondansetron PF 4 MG/2 ML Vial IVP PRN (19:04)
[2022-04-27] MEDS ORDERED: Cyclobenzaprine 10 MG TAB PO PRN (19:10)
[2022-04-27] MEDS ORDERED: Nitroglycerin 0.4 MG TAB (25 Tab Bottle) SL PRN (19:14)
[2022-04-27] MEDS ORDERED: Nicotine 21 MG PATCH TD SCH (20:00)
[2022-04-27] MEDS ORDERED: Enoxaparin Sodium 40 MG/0.4 ML SYRINGE SC SCH (20:00)
[2022-04-27] MEDS: Sacubitril 49 MG/Valsartan 51 MG TABLET PO SCH (20:04)
[2022-04-27] MEDS ORDERED: Atorvastatin Calcium 10 MG TAB PO SCH (21:00)
[2022-04-27] MEDS ORDERED: Pantoprazole 40 MG VIAL IVP SCH (21:00)
[2022-04-27 22:19] LABS: Troponin I Less than 0.010 ng/mL (< 0.028)
[2022-04-28 05:47] LABS: Band 3 % (5-11); Eosinophils 1 % (0-10); Lymphocytes 44 % (21-51); MDiff Complete? YES; Mean Corpuscular HGB CONC 32.7 g/dL (32.0-36.0); Mean Corpuscular Hemoglobin 30.4 pg (27.0-31.0); Mean Corpuscular Volume 92.7 fL (78.0-98.0); Mean Platelet Volume 7.5 fL (7.4-10.4); Monocytes 3 % (0-10); Neutrophil 49 % (42-75); Platelet Count 256 thou/uL (130-400); Platelet Morphology Comment Appears Adequate; RBC Distribution Width 12.2 % (11.5-14.5); RBC Morphology Normal; Red Blood Cell (RBC) Count 4.28 mill/uL (4.20-5.40); White Blood Cell (WBC) Count 7.8 thou/uL (4.8-10.8)
[2022-04-28 05:51] LABS: ALT (SGPT) 8 U/L (8-55); AST (SGOT) 14 U/L (5-34); Albumin 3.6 g/dL (3.5-5.0); Alkaline Phosphatase 83 U/L (40-110); Anion Gap 14 mmol/L (10-20); BUN (Urea Nitrogen) 10 mg/dL (7.0-18.7); Bilirubin, Total 0.3 mg/dL (0.2-1.2); Calc. Creatinine Clearance 110 mL/min (70-130); Calcium 8.6 mg/dL (7.8-10.44); Carbon Dioxide 22 mmol/L (22-29); Cardiac Risk 3.9 (Less than 4.5); Chloride 104 mmol/L (98-107); Cholesterol 128 mg/dl (< 200 Desired); Estimated GFR 101; Globulin 3.8 g/dL (2.4-3.5); Glucose 98 mg/dL (70-105); HDL Cholesterol 33 mg/dL (>60 Neg Risk); LDL Cholesterol, Calculated 78 mg/dL; Potassium 3.6 mmol/L (3.5-5.1); Protein, Total 7.4 g/dL (6.0-8.3); Sodium 136 mmol/L (136-145); Triglycerides 84 mg/dL (Less than 150)
[2022-04-28] MEDS ORDERED: Levothyroxine 150 MCG TAB PO SCH (06:00)
[2022-04-28] MEDS ORDERED: Carvedilol 6.25 MG TAB PO SCH (08:00)
[2022-04-28] MEDS ORDERED: Spironolactone 25 MG TAB PO SCH (08:00)
[2022-04-28] MEDS ORDERED: Furosemide 40 MG TAB PO SCH (09:00)
[2022-04-28] MEDS ORDERED: Pantoprazole 40 MG VIAL IVP SCH (09:00)
[2022-04-28] MEDS ORDERED: Enoxaparin Sodium 40 MG/0.4 ML SYRINGE SC SCH (09:00)
[2022-04-28] MEDS ORDERED: Aspirin Chewable 81 MG TAB PO SCH (09:00)
[2022-04-28] MEDS ORDERED: Regadenoson 0.4 MG/5 ML SYRINGE ONE (09:01)
[2022-04-28] MEDS: Sacubitril 49 MG/Valsartan 51 MG TABLET PO SCH (09:10)
[2022-04-28 15:49] VITALS: BP 100/71; TEMP 97.8
== END 2022-04-28 16:54 | disposition home or self-care (01) ==
LOC: ERS 12:17 → 2SW 14:39
PROVIDERS: ADMIT Internal Medicine; ATTEND Internal Medicine
DX: R07.89 Other chest pain (principal); I25.2 Old myocardial infarction; E78.5 Hyperlipidemia, unspecified; I10 Essential (primary) hypertension; I42.9 Cardiomyopathy, unspecified; F17.210 Nicotine dependence, cigarettes, uncomplicated; E89.0 Postprocedural hypothyroidism; I08.2 Rheumatic disorders of both aortic and tricuspid valves; E66.9 Obesity, unspecified; Z68.32 Body mass index [BMI] 32.0-32.9, adult; Z79.82 Long term (current) use of aspirin; Z79.890 Hormone replacement therapy; Z79.899 Other long term (current) drug therapy; Z95.5 Presence of coronary angioplasty implant and graft; Z95.810 Presence of automatic (implantable) cardiac defibrillator; Z20.822 Contact with and (suspected) exposure to COVID-19
CPT/HCPCS: 71045; 78452; 80061; 82553; 83690; 83735; 83880; 84484 ×2; 84703; 85610; 93005; 93017; 93306; 96372; 96374; 96376; 99285; A9500; G0378 ×3; U0003; U0005; 36415; 80053; 84443; 85025; C9113; J1650; J2785